=== PATIENT | male | born 2000 | race Caucasian/White ===

== ENCOUNTER 2024-10-28 09:23 | Emergency (ER) | payer OTHER, SELFPAY ==
--- NOTE | 2024-10-28 09:30 | ED_ITS ---
HPI - Male Genitourinary General Chief complaint: Urogenital-Male Stated complaint: Sti Test Time Seen by Provider: 10/28/24 10:27 Source: patient and RN notes reviewed Mode of arrival: ambulatory Limitations: no limitations History of Present Illness HPI Narrative: 24-year-old male presents with concern for STD exposure. Reports his girlfriend may have an STD, he is not sure which 1. He also reports a bump around his anal opening. He reports the bump is not painful, not itchy. Reports he has had 1 in the past the distal. After about a week and this 1 appeared about a week ago. MD Complaint: possible STD exposure Related Data Home Medications ?Medication ?Instructions ?Recorded ?Confirmed ?Last Taken ?Type No Home Medications 10/28/24 10/28/24 Unknown History Allergies Allergy/AdvReac Type Severity Reaction Status Date / Time No Known Allergies Allergy Verified 10/28/24 10:14 Review of Systems Review of Systems: CONSTITUTIONAL: Denies malaise, chills, sweats, or fever. CARDIOVASCULAR: Denies chest pain, palpitations, or edema. RESPIRATORY: Denies cough or dyspnea. GASTROINTESTINAL: Denies abdominal pain, nausea, vomiting, diarrhea GENITOURINARY: Denies dysuria, frequency, urgency, suprapubic pressure. Denies flank pain or hematuria. SKIN: Denies rash or itching.. Reports a bump around his anal opening MUSCULOSKELETAL: Denies back pain or myalgia. All systems reviewed & are unremarkable except as noted in HPI and below PMFSH Comments At time of signature, agree with nursing past medical, surgical, social and family history. There is no relevant family history pertinent to the presenting complaint Exam Narrative: GENERAL: Well-appearing, well-nourished, and in no acute distress. HEAD: Normocephalic. EYES: PERRLA, conjunctivae clear. NECK: Supple. No lymphadenopathy CHEST: Clear to auscultation. No respiratory distress. HEART: Regular rate and rhythm. SKIN: Warm, dry, no rash. small inflamed hair follicle noted proximal to the anus NEURO: Alert and oriented x3. PSYCH: Normal mood and affect Course Course Emergency Course: Patient has an international phone number so he will call for results the next 1-2 days. Patient understands he may need to return for treatment. Patient was advised to go see comprehensive testing STI clinic Patient is aware of diagnosis, understands and agrees to treatment plan. Anticipatory guidance given. Patient agrees to follow-up as directed and is aware of reasons to seek care at the emergency department. Portions of this record may have been created with voice recognition software Level of Care: Express Care Visit Vital Signs Vital signs: Vital Signs Temperature 97.8 F 10/28/24 10:05 Pulse Rate 71 10/28/24 10:05 Respiratory Rate 16 10/28/24 10:05 Blood Pressure 113/80 10/28/24 10:05 Pulse Oximetry 100 10/28/24 10:05 Temperature 97.8 F 10/28/24 10:05 Pulse Rate 71 10/28/24 10:05 Respiratory Rate 16 10/28/24 10:05 Blood Pressure 113/80 10/28/24 10:05 Pulse Oximetry 100 10/28/24 10:05 Reviewed. Critical Care Time Critical Care Time Critical Care Time: No Discharge Plan Discharge Clinical Impression: Possible exposure to STD Patient Disposition: Home, Self-Care Condition: Stable Instructions: Safe Sex Practices (ED) Additional Instructions: You have been tested for potential gonorrhea, chlamydia, and trichomoniasis today. Please call in 1-2 days for the results of today's testing. Any necessary treatment will be discussed at that time. You may need to return for injection. It is very important that you avoid unprotected intercourse during treatment and for 7 days AFTER TREATMENT is complete and until your partner(s) have been treated. Please encourage your partner(s) to seek testing and treatment. When you have been exposed to sexually transmitted infections, it is important that you seek comprehensive testing, since we do not provide testing for all sexually transmitted infections. Some infections can have no symptoms, but cause serious health problems. Contact your health care provider or report to the emergency department if: You have genital swelling or pain, or unusual bleeding. You have joint pain, rash, swollen lymph nodes or night sweats. You are severe abdominal pain. You have a fever. Symptoms do not go away or they get worse even after treatment. You have bleeding or pain during sex. Patient Language: Martiniquais Prescriptions: No Action No Home Medications Follow-up/Referrals: UNKNOWN,DOCTOR [Non-Staff] - Time of Disposition: 10:34
[2024-10-28 10:05] VITALS: BP 113/80; PULSE 71; RESP 16; TEMP 36.6; O2SAT 100
[2024-10-28 15:32] LABS: Trichomonas Vag PCR NOT DETECTED (NOT DETECTE)
[2024-10-28 15:54] LABS: Chlamydia trachomatis NOT DETECTED (NOT DETECTE); Neisseria gonorrhoeae PCR NOT DETECTED (NOT DETECTE)
== END 2024-10-28 10:35 | disposition home or self-care (01) ==
PROVIDERS: Emergency Provider Nurse Practitioner
DX: Z11.3 Encounter for screening for infections with a predominantly sexual mode of transmission (principal)
CPT/HCPCS: 87491; 87591; 87661; 99213; G0463